=== PATIENT | female | born 1960 | race Two or more races ===

== ENCOUNTER 2023-03-06 10:22 | Emergency (ER) | payer OTHER ==
[2023-03-06 11:10] VITALS: BP 153/97; PULSE 73; RESP 18; TEMP 98.8; BMI 39.0
== END 2023-03-06 11:42 | disposition home or self-care (01) ==
LOC: FER 10:22
DX: R51.9 Headache, unspecified (principal)
CPT/HCPCS: 70450-TC; 99284-25